=== PATIENT | male | born 1945 | race Caucasian/White ===

== ENCOUNTER 2022-08-12 13:49 | Inpatient (IN) | payer OTHER ==
[~2022-08-12] VITALS: Ht 167.6 cm; Wt 61.2 kg
[2022-08-12 13:57] VITALS: BP 152/82
[2022-08-12] MEDS ORDERED: NACL 0.9% 1,000 ML IV ONE (14:30)
--- NOTE | 2022-08-12 14:37 | NUR ---
PATIENT TAKEN TO CT VIA DANE
--- NOTE | 2022-08-12 15:20 | NUR ---
76M BIBA from home with c/o syncopal episode today. Per EMS, pt was sitting outside when witnessed by son have a syncopal episode lasting roughly 10 sec, pt became incontinent and confused as to where he is. Upon assessment, no oral trauma noted, pt magan at 57BPM. Pt placed on bedside monitor, seizure precautions taken, side rails x2.
[2022-08-12 15:26] LABS: BASOPHILS % (AUTO) 0.7 % (0.0-2.0); EOSINOPHILS # (AUTO) 0.1 K/uL (0-0.4); EOSINOPHILS % (AUTO) 1.1 % (0.0-4.0); HEMATOCRIT 39.5 % (36-52); HEMOGLOBIN 13.2 g/dL (12.0-18.0); LYMPHOCYTES # (AUTO) 0.9 K/uL (2.0-11.5); LYMPHOCYTES % (AUTO) 11.9 % (20.5-51.1); MEAN CORPUSCULAR HEMOGLOBIN 31 pg (27-31); MEAN CORPUSCULAR HGB CONC 34 g/dL (33-37); MONOCYTES # (AUTO) 0.4 K/uL (0.8-1.0); MONOCYTES % (AUTO) 6.1 % (1.7-9.3); NEUTROPHILS # (AUTO) 5.9 K/uL (1.8-7.7); NEUTROPHILS % (AUTO) 80.2 % (42.2-75.2); PLATELET COUNT (AUTO) 207 K/uL (140-450); RED BLOOD CELL COUNT(AUTO) 4.33 MIL/uL (4.20-6.10); RED CELL DISTRIBUTION WIDTH 14.8 % (11.6-13.7); WHITE BLOOD COUNT (AUTO) 7.3 K/uL (4.8-10.8)
[2022-08-12 15:43] LABS: ALBUMIN 3.6 g/dL (3.4-5.0); ANION GAP 14.7 (8-16); ASPARTATE AMINOTRANSFERASE 16 U/L (15-37); CARBON DIOXIDE 25.8 mmol/L (21-32); CHLORIDE 107 mmol/L (98-107); CREATININE 2.1 mg/dL (0.6-1.3); GLUCOSE 116 mg/dL (74-106); POTASSIUM 4.5 mmol/L (3.5-5.1); SODIUM SERUM 143 mmol/L (136-145); TOTAL BILIRUBIN 0.7 mg/dL (0.0-1.0); UREA NITROGEN, BLOOD 34 mg/dL (7-18)
--- NOTE | 2022-08-12 16:51 | NUR ---
Straight cath performed using sterile technique, 40ml output, urine placed in cup and handed to lab.
[2022-08-12 17:05] LABS: APPEARANCE,URINE CLEAR (CLEAR); BILIRUBIN,URINE NEGATIVE (NEGATIVE); BLOOD, URINE NEGATIVE (NEGATIVE); COLOR,URINE YELLOW (YELLOW); LEUKOCYTE ESTERASE ,URINE NEGATIVE (NEGATIVE); NITRITE, URINE NEGATIVE (NEGATIVE); UGLUCOSE NEGATIVE (NEGATIVE)
[2022-08-12 17:18] LABS: BARBITURATE, URINE NEGATIVE ng/ml (NEG <=200); BENZODIAZEPINE, URINE NEGATIVE ng/mL (NEG <=200); CANNABINOID, URINE NEGATIVE ng/mL (NEG <=50); COCAINE, URINE NEGATIVE ng/mL (NEG <=300); OPIATE, URINE NEGATIVE ng/mL (NEG <=2000); PHENCYCLIDINE SCREEN,URINE NEGATIVE ng/mL (NEG <=25)
[2022-08-12] MEDS ORDERED: ASPIRIN 325 MG TAB PO ONE (17:50)
[2022-08-12] MEDS ORDERED: MAG SULF 2000 MG/WATER PREMIX 50 ML IV PRN (18:20)
[2022-08-12] MEDS ORDERED: MAGNESIUM OXIDE 400 MG TAB PO PRN (18:20)
[2022-08-12] MEDS ORDERED: POTASSIUM CHLORIDE 10 MEQ TABER PO PRN (18:20)
[2022-08-12] MEDS ORDERED: KCL 20 MEQ/WATER INJ PREMIX 200 ML IV PRN (18:20)
[2022-08-12] MEDS ORDERED: HYDROcodone/APAP 5/325 MG 1 TAB TAB PO PRN (18:20)
[2022-08-12] MEDS ORDERED: ACETAMINOPHEN 325 MG TAB PO PRN (18:20)
[2022-08-12] MEDS ORDERED: MORPHINE SULFATE 2 MG/ML SYR IVP PRN (18:30)
--- NOTE | 2022-08-12 19:20 | NUR ---
Pt report given to JOSE E Burleson. Transfer of care at this time.
--- NOTE | 2022-08-13 00:03 | NUR ---
CONTACT TABITHA WU
--- NOTE | 2022-08-13 03:30 | NUR ---
hand off care given to CELSA Wood at [phone]
--- NOTE | 2022-08-13 04:58 | NUR ---
PT IS RESTING IN BED ON BEDSIDE MONITOR. SZ PADS ON SIDE RAILS X2. PT IS INCONT AND WEARS A DIAPER. PT IS UP WITH ASSIST. A&OX3. PT IS A POOR HISTORIAN. RESP EVEN AND UNLABORED.
--- NOTE | 2022-08-13 08:00 | NUR ---
STARTED CARE OF THIS PT, LYING ON BED, ALERT, BUT CONFUSED. UNABLE TO FOLLOWUP COMMAND. BUT MOSTLY PT ASLEEPING ON THE BED.
[2022-08-13 08:04] LABS: BASOPHILS # (AUTO) 0.1 K/uL (0.00-0.22); EOSINOPHILS # (AUTO) 0.3 K/uL (0-0.4); EOSINOPHILS % (AUTO) 5.5 % (0.0-4.0); HEMATOCRIT 36.7 % (36-52); HEMOGLOBIN 12.4 g/dL (12.0-18.0); LYMPHOCYTES # (AUTO) 1.5 K/uL (2.0-11.5); MEAN CORPUSCULAR HEMOGLOBIN 30 pg (27-31); MEAN CORPUSCULAR HGB CONC 34 g/dL (33-37); MONOCYTES # (AUTO) 0.4 K/uL (0.8-1.0); NEUTROPHILS # (AUTO) 2.5 K/uL (1.8-7.7); NEUTROPHILS % (AUTO) 52.5 % (42.2-75.2); PLATELET COUNT (AUTO) 204 K/uL (140-450); RED BLOOD CELL COUNT(AUTO) 4.08 MIL/uL (4.20-6.10); RED CELL DISTRIBUTION WIDTH 14.5 % (11.6-13.7); WHITE BLOOD COUNT (AUTO) 4.7 K/uL (4.8-10.8)
[2022-08-13 08:38] LABS: ALBUMIN 3.2 g/dL (3.4-5.0); ANION GAP 15.1 (8-16); ASPARTATE AMINOTRANSFERASE 18 U/L (15-37); CARBON DIOXIDE 25.7 mmol/L (21-32); CHLORIDE 108 mmol/L (98-107); CREATININE 1.8 mg/dL (0.6-1.3); GLUCOSE 89 mg/dL (74-106); POTASSIUM 3.8 mmol/L (3.5-5.1); SODIUM SERUM 145 mmol/L (136-145); TOTAL BILIRUBIN 0.7 mg/dL (0.0-1.0); UREA NITROGEN, BLOOD 31 mg/dL (7-18)
--- NOTE | 2022-08-13 12:09 | NUR ---
GOT BED IN TELE. REPORT CALLED AND GIVEN TO RN/TEL. PT WAS SENT TO FLOOR BY [facility]ANE.
[2022-08-13] MEDS: NACL 0.9% 1,000 ML IV SCH ×2 (14:03→21:40)
--- NOTE | 2022-08-13 14:08 | NUR ---
DC PLANNING PER NOTES, PT SHOWING SIGNS OF CONFUSION. SW OUTREACHED TO PTS EMERGENCY CONTACT, BRYCE, SON, TO GATHER COLLATERAL INFORMATION, HOWEVER, NO ANSWER. SW LEFT MESSAGED REQUESTING A RETURN PHONE CALL.
[2022-08-13 14:40] VITALS: BP 175/71
--- NOTE | 2022-08-13 15:14 | NUR ---
PATIENT HAS BEEN SCREENED AND CATEGORIZED LOW NUTRITION RISK. PATIENT WILL BE SEEN WITHIN 7 DAYS OF ADMISSION. 08/19/[address]
--- NOTE | 2022-08-13 16:30 | NUR ---
ADMISSION NOTE FOR A 76 YEAR OLD MALE PATIENT UNDER THE CARE OF DOCTOR PATEL FOR SYNCOPE.
[2022-08-13 20:00] VITALS: BP 162/72
--- NOTE | 2022-08-13 20:05 | NUR ---
PATIENT AWAKE RESTING COMFORTABLY. NO SOB NOTED ON ROOM AIR. NO COMPLAINTS OF PAIN AT THIS TIME. ALL SAFETY MEASURES IN PLACE. CALL LIGHT WITHIN REACH. IVF INFUSING AT 120 MLS REGULATED TO 125 MLS/HR ORDERED. WILL CONTINUE TO MONITOR PT.
--- NOTE | 2022-08-13 21:00 | NUR ---
SCHEDULED DUE MEDICATION GIVEN.
--- NOTE | 2022-08-13 22:20 | NUR ---
PATIENT HAD LARGE BM. CLEANED, CHANGED AND REPOSITIONED.
[2022-08-14] VITALS: BP 157/79
--- NOTE | 2022-08-14 03:55 | NUR ---
BP 164/90 P-[address] CABAN FOR ORDERS AWAITING FOR REPLY.
[2022-08-14 04:00] VITALS: BP 164/90
[2022-08-14] MEDS: NACL 0.9% 1,000 ML IV SCH ×3 (06:29→21:23)
[2022-08-14 07:27] LABS: BASOPHILS # (AUTO) 0.1 K/uL (0.00-0.22); BASOPHILS % (AUTO) 1.7 % (0.0-2.0); EOSINOPHILS # (AUTO) 0.4 K/uL (0-0.4); EOSINOPHILS % (AUTO) 7.3 % (0.0-4.0); HEMATOCRIT 36.4 % (36-52); HEMOGLOBIN 12.3 g/dL (12.0-18.0); LYMPHOCYTES # (AUTO) 1.4 K/uL (2.0-11.5); LYMPHOCYTES % (AUTO) 29.4 % (20.5-51.1); MEAN CORPUSCULAR HEMOGLOBIN 30 pg (27-31); MEAN CORPUSCULAR HGB CONC 34 g/dL (33-37); MEAN CORPUSCULAR VOLUME 89.4 fL (80-94); MONOCYTES # (AUTO) 0.5 K/uL (0.8-1.0); MONOCYTES % (AUTO) 9.5 % (1.7-9.3); NEUTROPHILS # (AUTO) 2.5 K/uL (1.8-7.7); NEUTROPHILS % (AUTO) 52.1 % (42.2-75.2); PLATELET COUNT (AUTO) 198 K/uL (140-450); RED BLOOD CELL COUNT(AUTO) 4.07 MIL/uL (4.20-6.10); RED CELL DISTRIBUTION WIDTH 14.6 % (11.6-13.7); WHITE BLOOD COUNT (AUTO) 4.9 K/uL (4.8-10.8)
--- NOTE | 2022-08-14 07:29 | NUR ---
ENDORSED PATIENT TO MORNING SHIFT NURSE CALEB FOR CONTINUITY OF CARE.
[2022-08-14 07:48] LABS: ANION GAP 13.1 (8-16); CARBON DIOXIDE 25.4 mmol/L (21-32); CHLORIDE 111 mmol/L (98-107); CREATININE 1.9 mg/dL (0.6-1.3); GLUCOSE 120 mg/dL (74-106); POTASSIUM 3.5 mmol/L (3.5-5.1); SODIUM SERUM 146 mmol/L (136-145); UREA NITROGEN, BLOOD 33 mg/dL (7-18)
[2022-08-14 08:00] VITALS: BP 182/85
[2022-08-14 08:02] LABS: ALBUMIN 2.7 g/dL (3.4-5.0); ANION GAP 12.1 (8-16); ASPARTATE AMINOTRANSFERASE 16 U/L (15-37); CARBON DIOXIDE 26.4 mmol/L (21-32); CHLORIDE 111 mmol/L (98-107); CREATININE 1.9 mg/dL (0.6-1.3); GLUCOSE 117 mg/dL (74-106); MAGNESIUM 1.8 mg/dL (1.8-2.4); POTASSIUM 3.5 mmol/L (3.5-5.1); SODIUM SERUM 146 mmol/L (136-145); TOTAL BILIRUBIN 0.3 mg/dL (0.0-1.0); UREA NITROGEN, BLOOD 32 mg/dL (7-18)
[2022-08-14] MEDS: amLODIPine 5 MG TAB PO SCH (10:42)
[2022-08-14] MEDS: hydrALAZINE 25 MG TAB PO PRN ×2 (10:43→21:09)
[2022-08-14 12:00] VITALS: BP 177/81
--- NOTE | 2022-08-14 14:15 | NUR ---
DC PLANNING SW OUTREACHED TO PT'S EMERGENCY CONTACT, LIA [phone] TO GATHER COLLATERAL INFORMATION. LIA REPORTS PT RESIDES IN A SINGLE STORY HOME WITH HIS FAMILY AT THE ADDRESS LISTED ON FILE. LIA IDENTIFIED HERSELF, AND BRYCE ALBADAPHNEY, OPT EMERGENCY CONTACT. LIA REPORTS BEING PT'S DPOA AND REPORTS SHE JUST NEEDS TO FIND COPY. PTS LAST VISIT WITH PCP, 2 MONTHS AGO. PT IS REPORTED TO BE MEDICATION COMPLAINT, NO BARRIERS IN ACQUIRING MEDICATIONS REPORTED. PT RECEIVES MEDICATION FROM [facility] IN [place], WHEN NEEDED. AT BASELINE, PT IS REPORTED TO BE AMBULATORY WITH FWW ASSISTANCE NEEDED. PT COMPLETES ADL'S INDEPENDENTLY. LIA REPORTS PT WAS RECEIVING SKILLED CARE WITH RHONDA MATHEWS FOR 2-3 WEEKS IN DECEMBER AFTER SUFFERING FROM A STROKE. LIA REPORTS PATIENT WAS RECEIVING HH SERVICES, PT/OT IN MARCH 04 HOWEVER, LIA STRUGGLED TO RECALL NAME OF AGENCY. LIA DENIES HX OF DIALYSIS TX, HOSPICE CARE. PT IS REPORTED TO BE PREDIABETIC AND IS WELL MONITORED PT'S DAUGHTER IS A NURSE. LIA REPORTS DC PLAN IS FOR PT TO RETURN TO HOME WHEN MEDICALLY STABLE. SW INQUIRED ON ADDITIONAL RESOURCES NEEDED, LIA DECLINED AT THIS TIME. Addendum: 08/14/22 at 1417 by Jovita Lentz Amended: Links added.
[2022-08-14] MEDS ORDERED: AMLO2.5T PO (14:31)
[2022-08-14] MEDS ORDERED: QUET25TA PO (14:59)
[2022-08-14 16:00] VITALS: BP 179/80
[2022-08-14 20:00] VITALS: BP 177/90
--- NOTE | 2022-08-14 21:13 | NUR ---
SCHEDULED DUE MEDICATIONS ADMINISTERED.
--- NOTE | 2022-08-14 21:14 | NUR ---
PATIENT AWAKE ALERT VERBALLY RESPONSIVE. ABLE TO COMMUNICATE WITH HIS NEEDS. NO DISTRESS ON ROOM AIR SATING AT 96%. DENIES PAIN. CALL LIGHT WITHIN REACH. ALL SAFETY PRECAUTIONS ARE IN PLACE.
[2022-08-15] VITALS: BP 162/74
[2022-08-15 04:00] VITALS: BP 174/78
[2022-08-15] MEDS: hydrALAZINE 25 MG TAB PO PRN ×3 (04:00→20:43)
--- NOTE | 2022-08-15 04:05 | NUR ---
BP-174/78 P-66 HYDRALAZINE PRN GIVEN.
[2022-08-15] MEDS: NACL 0.9% 1,000 ML IV SCH (05:40)
--- NOTE | 2022-08-15 07:19 | NUR ---
BEDSIDE REPORT GIVEN TO MORNING SHIFT NURSE LUIS ALFREDO FOR CONTINUITY OF CARE.
[2022-08-15] MEDS: amLODIPine 5 MG TAB PO SCH (08:04)
--- NOTE | 2022-08-15 09:23 | NUR ---
DC ORDER IN PLACE, JOSE E LEFT MESSAGE WITH PATIENTS EMERSON FITZGERALD TO CLARIFY DC PLAN, HOME VS SNF. WILL WAIT FOR RESPONSE TO MAKE ARRANGEMENTS. Addendum: 08/15/22 at 1433 by Deysi Morrell RN RN RN SPOKE WITH THE PATIENTS SON IN LAW BRYCE ALBA, HE STATES THAT THE DC PLAN IS FOR PATIENT TO GO TO SNF FOR P.T..
--- NOTE | 2022-08-15 12:41 | NUR ---
Messaged Dr. Diaz about discontinuing IVF 125cc/hr bc of elevated BP 165/62. said ok to discontinue fluids if he is eating.
--- NOTE | 2022-08-15 13:08 | NUR ---
PRN hydralazine given for BP 165/62.
--- NOTE | 2022-08-15 15:39 | NUR ---
Let MD Diaz know patient BP 198/84 and PRN hydralazine not due yet. Awaiting reply. Addendum: 08/15/22 at 1550 by Agency 08 JOSE E RN Eli DUNLAP know patient denies feeling SOB, chest pain, blurry vision, nausea. said ok to give another 25mg hydralazine.
[2022-08-15] MEDS ORDERED: hydrALAZINE 25 MG TAB PO SCH (15:50)
--- NOTE | 2022-08-15 17:45 | NUR ---
Retook BP. BP 204/102 after giving additional dose 25mg hydralazine. Let MD Diaz know. Awaiting response. Addendum: 08/15/22 at 1810 by Agency 08 JOSE E RN Also mayra Ibrahim about the high blood pressure. Waiting response. Addendum: 08/15/22 at 1817 by Agency [address] Ibrahim said give labetalol 15mg IV once
[2022-08-15 17:50] VITALS: BP 204/102
[2022-08-15] MEDS ORDERED: LABETALOL 20 MG/4 ML VIAL IVP ONE ×2 (18:20→18:26)
[2022-08-15 20:00] VITALS: BP 170/100
--- NOTE | 2022-08-15 20:44 | NUR ---
SCHEDULED DUE MEDICATIONS ADMINISTERED.
--- NOTE | 2022-08-15 23:10 | NUR ---
PATIENT HAD LARGE BM. CLEANED, CHANGED AND REPOSITIONED. DENIES PAIN. SAFETY MEASURES IN PLACE. CALL LIGHT WITHIN REACH.
[2022-08-16] VITALS: BP 188/96
[2022-08-16] MEDS: hydrALAZINE 25 MG TAB PO PRN ×2 (02:46→09:11)
[2022-08-16 04:00] VITALS: BP 151/97
--- NOTE | 2022-08-16 06:40 | NUR ---
PATIENT HAD X2 EPISODES OF HIGH BP, PRN MEDS GIVEN ORDERED.
[2022-08-16 07:27] LABS: BASOPHILS # (AUTO) 0.1 K/uL (0.00-0.22); BASOPHILS % (AUTO) 1.4 % (0.0-2.0); EOSINOPHILS # (AUTO) 0.3 K/uL (0-0.4); EOSINOPHILS % (AUTO) 4.6 % (0.0-4.0); HEMATOCRIT 42.6 % (36-52); HEMOGLOBIN 14.4 g/dL (12.0-18.0); LYMPHOCYTES # (AUTO) 1.6 K/uL (2.0-11.5); LYMPHOCYTES % (AUTO) 28.9 % (20.5-51.1); MEAN CORPUSCULAR HEMOGLOBIN 30 pg (27-31); MEAN CORPUSCULAR HGB CONC 34 g/dL (33-37); MEAN CORPUSCULAR VOLUME 89.2 fL (80-94); MONOCYTES # (AUTO) 0.5 K/uL (0.8-1.0); MONOCYTES % (AUTO) 8.6 % (1.7-9.3); NEUTROPHILS # (AUTO) 3.2 K/uL (1.8-7.7); NEUTROPHILS % (AUTO) 56.5 % (42.2-75.2); PLATELET COUNT (AUTO) 248 K/uL (140-450); RED BLOOD CELL COUNT(AUTO) 4.77 MIL/uL (4.20-6.10); RED CELL DISTRIBUTION WIDTH 14.4 % (11.6-13.7); WHITE BLOOD COUNT (AUTO) 5.6 K/uL (4.8-10.8)
--- NOTE | 2022-08-16 07:30 | NUR ---
ENDORSED PATIENT TO DAY SHIFT NURSE CALEB FOR CONTINUITY OF CARE.
[2022-08-16 07:58] LABS: ALBUMIN 3.2 g/dL (3.4-5.0); ANION GAP 14.2 (8-16); ASPARTATE AMINOTRANSFERASE 19 U/L (15-37); CARBON DIOXIDE 25.7 mmol/L (21-32); CHLORIDE 105 mmol/L (98-107); CREATININE 1.4 mg/dL (0.6-1.3); GLUCOSE 109 mg/dL (74-106); MAGNESIUM 1.9 mg/dL (1.8-2.4); POTASSIUM 3.9 mmol/L (3.5-5.1); SODIUM SERUM 141 mmol/L (136-145); TOTAL BILIRUBIN 0.4 mg/dL (0.0-1.0); UREA NITROGEN, BLOOD 21 mg/dL (7-18)
[2022-08-16 08:00] VITALS: BP 160/109
[2022-08-16] MEDS: amLODIPine 5 MG TAB PO SCH ×2 (09:10→21:22)
[2022-08-16 12:00] VITALS: BP 148/81
[2022-08-16 16:00] VITALS: BP 139/78
--- NOTE | 2022-08-16 19:30 | NUR ---
RECEIVED PT FROM [facility] NURSE ELLIS FOR CONTINUITY OF CARE. PT AWAKE IN BED. RESPIRATIONS EVEN AND UNLABORED ON RA. NO DISTRESS NOTED. NO C/O OF PAIN. SKIN INTACT, WARM AND DRY TO TOUCH. IV SITE ACCIDENTALLY REMOVED BY PT. JOSE E ELLIS WILL ATTEMPT TO INSERT A NEW IV LINE. CALL LIGHT WITHIN REACH. SAFETY PRECAUTIONS IN PLACE.
[2022-08-16 20:00] VITALS: BP 169/82
--- NOTE | 2022-08-16 21:22 | NUR ---
ADMINISTERED SCHEDULED MEDS. BP 169/82. ASYMPTOMATIC.
--- NOTE | 2022-08-16 22:22 | NUR ---
RE-ASSESSED BP, 116/86. PT REQUESTED SNACKS. SNACKS GIVEN.
--- NOTE | 2022-08-17 01:30 | NUR ---
PT AWAKE. NO DISTRESS NOTED. CLEANED AND CHANGED PT DIAPER. PT REMAINED CLEAN AND DRY.
[2022-08-17 04:00] VITALS: BP 154/89
--- NOTE | 2022-08-17 05:59 | NUR ---
CLEANED AND CHANGED PT DISPER. PT HAD BM. PT TOLERATED WELL. NO DISTRESS NOTED.
--- NOTE | 2022-08-17 07:15 | NUR ---
ENDORSED PT TO DAY SHIFT NURSE CAT FOR CONTINUITY OF CARE. ALL NEEDS MET THROUGHOUT SHIFT. PT IS STABLE.
--- NOTE | 2022-08-17 07:17 | NUR ---
RECEIVED PT FROM JOSE E AYALA FOR CONTINUITY OF CARE. PT AWAKE IN BED. RESPIRATIONS EVEN AND UNLABORED ON RA. NO DISTRESS NOTED. SKIN INTACT, WARM AND DRY TO TOUCH. PT HAS D/C ORDER. AWAITING FOR SNF PLACEMENT. CALL LIGHT WITHIN REACH. SAFETY PRECAUTIONS IN PLACE.
[2022-08-17] MEDS: hydrALAZINE 25 MG TAB PO PRN ×3 (07:46→21:56)
[2022-08-17 09:00] VITALS: BP 169/82
[2022-08-17] MEDS: amLODIPine 5 MG TAB PO SCH ×2 (09:53→20:57)
[2022-08-17 12:00] VITALS: BP 168/97
[2022-08-17 12:41] LABS: ALBUMIN 3.3 g/dL (3.4-5.0); ANION GAP 14.5 (8-16); ASPARTATE AMINOTRANSFERASE 24 U/L (15-37); CARBON DIOXIDE 28.7 mmol/L (21-32); CHLORIDE 102 mmol/L (98-107); CREATININE 1.7 mg/dL (0.6-1.3); GLUCOSE 112 mg/dL (74-106); MAGNESIUM 1.9 mg/dL (1.8-2.4); POTASSIUM 4.2 mmol/L (3.5-5.1); SODIUM SERUM 141 mmol/L (136-145); TOTAL BILIRUBIN 0.4 mg/dL (0.0-1.0); UREA NITROGEN, BLOOD 27 mg/dL (7-18)
[2022-08-17 12:45] LABS: BASOPHILS # (AUTO) 0.1 K/uL (0.00-0.22); EOSINOPHILS # (AUTO) 0.2 K/uL (0-0.4); EOSINOPHILS % (AUTO) 3.4 % (0.0-4.0); HEMATOCRIT 41.3 % (36-52); LYMPHOCYTES # (AUTO) 1.2 K/uL (2.0-11.5); LYMPHOCYTES % (AUTO) 18.5 % (20.5-51.1); MEAN CORPUSCULAR HEMOGLOBIN 30 pg (27-31); MEAN CORPUSCULAR HGB CONC 34 g/dL (33-37); MEAN CORPUSCULAR VOLUME 89.5 fL (80-94); MONOCYTES # (AUTO) 0.5 K/uL (0.8-1.0); MONOCYTES % (AUTO) 7.6 % (1.7-9.3); NEUTROPHILS # (AUTO) 4.6 K/uL (1.8-7.7); NEUTROPHILS % (AUTO) 69.5 % (42.2-75.2); PLATELET COUNT (AUTO) 270 K/uL (140-450); RED BLOOD CELL COUNT(AUTO) 4.61 MIL/uL (4.20-6.10); RED CELL DISTRIBUTION WIDTH 14.5 % (11.6-13.7); WHITE BLOOD COUNT (AUTO) 6.7 K/uL (4.8-10.8)
[2022-08-17 16:00] VITALS: BP 160/93
[2022-08-17 20:00] VITALS: BP 172/106
--- NOTE | 2022-08-17 20:07 | NUR ---
V/S TAKEN. SBP 170'S HR 100'S. ADMINISTERED DUE NORVASC AND HEPARIN. WILL RE-ASSESS BP.
--- NOTE | 2022-08-17 21:56 | NUR ---
RE-ASSESSED BP. SBP STILL 170'S AND HR 100'S. ASYMPTOMATIC. ADMINISTERED PRN PO HYDRALAZINE.
[2022-08-17] MEDS ORDERED: hydrALAZINE 20 MG/ML VIAL IVP PRN (23:25)
--- NOTE | 2022-08-17 23:30 | NUR ---
RE-ASSESSED BP. SBP 170'S, HR100'S. ASYMPTOMATIC. JOSE E JESUS MADE AWARE. INFORMED DR FERNANDES. RECEIVED ORDER FOR PRN IVP HYDRALAZINE 10MG FOR SBP >160. NEW ORDER ADMINISTERED BY JOSE E JESUS. PT CONTINUOUSLY ADMINISTERED.
--- NOTE | 2022-08-18 02:55 | NUR ---
PT ASKED FOR SNACKS. SNACKS GIVEN. NO DISTRESS NOTED. SAFETY PRECAUTIONS IN PLACE.
[2022-08-18 04:00] VITALS: BP 158/79
--- NOTE | 2022-08-18 05:48 | NUR ---
CLEANED AND CHANGED PT DIAPER. PT TOLERATED WELL. PT CONTINUOUSLY MONITORED.
--- NOTE | 2022-08-18 07:03 | NUR ---
ENDORSED PT TO DAY SHIFT NURSE ROSALBA FOR CONTINUITY OF CARE. ALL NEEDS MET THROUGHOUT SHIFT. PT IS STABLE.
--- NOTE | 2022-08-18 07:05 | NUR ---
ASSUMED CONTINUITY OF CARE. RESTING ON BED COMFORTABLY. ON ROOM AIR. NO SOB, NOTED. A & O X1 WITH CONFUSION NOTED. RE-ORIENTED TO EVENTS AND SURROUNDINGS. EXPLAINED PLAN OF CARE, USE OF CALL LIGHT/BED/TV/BATHROOM. VERBALIZED UNDERSTANDING. SEIZURE AND FALL PRECAUTION APPLIED CALL LIGHT WITHIN REACH.
[2022-08-18 08:00] VITALS: BP 160/97
[2022-08-18] MEDS: amLODIPine 5 MG TAB PO SCH ×2 (08:34→20:59)
[2022-08-18 10:00] VITALS: BP 156/87
--- NOTE | 2022-08-18 11:00 | NUR ---
SPEECH LANGUAGE PATHOLOGIST TRAVEL LONNIE CAME FOR LAB BLOOD DRAW. PT. TOLERATED WELL.
[2022-08-18 11:35] LABS: ANION GAP 14.8 (8-16); CARBON DIOXIDE 26.3 mmol/L (21-32); CHLORIDE 103 mmol/L (98-107); CREATININE 1.7 mg/dL (0.6-1.3); GLUCOSE 136 mg/dL (74-106); POTASSIUM 4.1 mmol/L (3.5-5.1); SODIUM SERUM 140 mmol/L (136-145); UREA NITROGEN, BLOOD 36 mg/dL (7-18)
[2022-08-18 12:00] VITALS: BP 154/88
--- NOTE | 2022-08-18 13:48 | NUR ---
[employer] CAME FOR PT. US KIDNEYS THAT WAS ORDERED BY DR. POWELL.
[2022-08-18 16:00] VITALS: BP 145/83
[2022-08-18 16:02] VITALS: BP 145/83
--- NOTE | 2022-08-18 19:15 | NUR ---
BEDSIDE REPORT GIVEN TO JESSICA MICHEL. PT. IN STABLE CONDITION. IV SITE INTACT AND PATENT.
--- NOTE | 2022-08-18 19:30 | NUR ---
RECEIVED REPORT FROM DAY SHIFT NURSE. NO S/S OF DISTRESS. CALL LIGHT IN REACH. ALL SAFETY MEASURES IN PLACE. PT CAN STATE NAME, SLIGHTLY CONFUSED
--- NOTE | 2022-08-19 | NUR ---
PT RESTING IN BED, EYES CLOSED. NO S/S OF DISTRESS. CALL LIGHT IN REACH. ALL SAFETY MEASURES IN PLACE. CHEST RISE AND FALL NOTED AND SYMMETRICAL. WILL CONTINUE TO MONITOR
[2022-08-19 04:00] VITALS: BP 140/86
--- NOTE | 2022-08-19 05:45 | NUR ---
PT CLEANED AND CHANGED. REPOSITIONED AND REORIENTED. PT KNOWS NAME BUT IS SLIGHTLY CONFUSED AND FORGETFUL. NO S/S OF DISTRESS. CALL LIGHT IN REACH. ALL SAFETY MEASURES IN PLACE
--- NOTE | 2022-08-19 07:19 | NUR ---
ENDORSED PT TO DAY SHIFT NURSE. NO S/S OF DISTRESS. CALL LIGHT IN REACH. ALL SAFETY MEASURES IN PLACE
[2022-08-19 08:00] VITALS: BP 149/98
[2022-08-19] MEDS: amLODIPine 5 MG TAB PO SCH (10:09)
--- NOTE | 2022-08-19 11:57 | NUR ---
DC PLANNING: RECEIVED A CALL FROM JACEY AGUSTIN WITH [facility] ST[facility] CAN GO TO ROOM 108 # TO GIVE REPORT [phone] ARRANGED TRANSPORT WITH [facility] ETA 1500 NOTIFIED HARRIET Lilly CM TO FOLLOW Addendum: 08/19/22 at 1345 by Rachelle Cevallos RN DC PLANNING: PER PATIENT'S SON REQUESTING HIS DAD TO GO TO [place]. CANCELED JACEY RAMIREZ AND PT WILL BE GOING TO [place] ROOM 22B # TO GIVE REPORT [phone] ARRANGED TRANSPORT WITH [facility] ETA 3 PM. NOTIFIED ZAHIRA DE GUZMAN CM TO FOLLOW
--- NOTE | 2022-08-19 15:02 | NUR ---
RECEIVE CM CALL AND BE INFORMED THAT PATIENT IS DISCHARGING TO [facility] FOR ROOM 108C; [facility] WILL RF MICROWAVE ENGINEER PATIENT AT 1500. NURSE CALL AND GIVE REPORT TO REJI. DISCHARGE INSTRUCTION GIVEN AND DISCHARGE CONSENT SIGN. ABOUT HALF HOUR LATER, PATIENT 'S SON ARRIVE AND REQUEST TO TALK TO CM WHICH ENDS WITH CANCELLED TRANSPORTATION TO [facility]. PER FAMILY REQUEST, PATIENT DISCHARGE TO [place] ROOM 222A. NURSE CALL FOR REPORT TO HARJIT SANTOS, CELSA @[phone]. RF MICROWAVE ENGINEER TIME SCHEDULE AT 1500. WILL F/U Addendum: 08/19/22 at 1740 by Savannah Sesay RN [facility] NON-EMERGENCY MEDICAL TRANSPORTATION EMT TEAM IS HERE TO RF MICROWAVE ENGINEER PATIENT. IV ACCESS & WRIST REMOVE BEFORE TRANSFER OUT THE FACILITY W/ STABLE CONDITION.
[2022-08-19] MEDS ORDERED: hydrALAZINE 25 MG TAB PO SCH (21:00)
== END 2022-08-19 17:30 | DRG 422 ==
LOC: MED 13:49 → OBSVTOIN 18:22 → MTU 18:22 → MMU 08-19 05:14 → MTU 08-19 05:40
PROVIDERS: ADMIT Hospitalist; ATTEND Hospitalist
DX: E86.0 Dehydration (principal); G92.8 Other toxic encephalopathy; N17.9 Acute kidney failure, unspecified; I51.7 Cardiomegaly; I10 Essential (primary) hypertension; Z20.822 Contact with and (suspected) exposure to COVID-19; N18.32 Chronic kidney disease, stage 3b
CPT/HCPCS: 36415; 70450; 71045; 76770; 80048; 80053; 80305; 81003; 83735; 84484; 85025; 87081; 93005; 96360; 97112; 97163-GP; 97530; 99285; J0360; J1644; J3490; J7030; Q0092